=== PATIENT | female | born 1995 | race Two or more races ===

== ENCOUNTER 2025-04-21 10:03 | Emergency (ER) | payer MEDICAID, OTHER ==
[~2025-04-21] VITALS: Ht 160 cm; Wt 91.0 kg
--- NOTE | 2025-04-21 10:29 | ED.PDOC ---
MANAGER DEPARTMENT HPI Comments 30y F who presents to the ED for chief complaint of vaginal bleeding. Pt states she has history of irregular periods and states despite not being on her period for the past few months, she has been having intermittent vaginal bleeding. Pt states she has had days of heavy and days of light vaginal bleeding over the past 2 weeks. Pt does not recall exactly how many pads she has been going through daily but states it varies. Pt has been having associated diffuse lower abdominal cramping pain, intermittent, with no associated exacerbating or relieving factors. Pt states she is currently not . Pt denies use of control at this time. Pt states she has also not seen an OB for her symptoms or ever been evaluated for them. Pt otherwise denies any past medical history. Pt has noted BP of 153/90 but otherwise stable vitals including 02 sat of 99% on room air, rr 16, and heart rate of 87. Pt otherwise denies any other symptoms at this time. Chief Complaint: Vaginal Bleed Time Seen by MD: 10:27 Reviewed Notes: Medications, Allergies Allergies: Uncoded Allergies: SPIDERS (Adverse Reaction, Unknown, 04/21/25) Information Source: Patient Mode of Arrival: Ambulatory Brought in by: self Past Medical History Past Medical History (Other): Obesity, heavy menses [employer]PER[employer]OR History: Other (Heavy, irregular menses) Family History Family History (Other): Gallstones Social History Smoker: Non-Smoker Alcohol: Denies ETOH Use Drugs: Denies Drug Use Lives In: Home Constitutional: denies: chills, diaphoresis, fatigue, fever, malaise, sweats, weakness, others EENTM: denies: blurred vision, double vision, ear bleeding, ear discharge, ear drainage, ear pain, ear ringing, eye pain, eye redness, hearing loss, mouth pain, mouth swelling, nasal discharge, nose bleeding, nose congestion, nose pain, photophobia, tearing, throat pain, throat swelling, voice changes, others Respiratory: denies: cough, hemoptysis, orthopnea, SOB at rest, shortness of breath, SOB with excertion, stridor, wheezing, others Cardiovascular: denies: chest pain, dizzy spells, diaphoresis, Dyspnea on exertion, edema, irregular heart beat, left arm pain, lightheadedness, palpitations, PND, syncope, others Gastrointestinal: denies: abdomen distended, abdominal pain, blood streaked bowels, constipated, diarrhea, dysphagia, difficulty swallowing, hematemesis, melena, nausea, poor appetite, poor fluid intake, rectal bleeding, rectal pain, vomiting, others Genitourinary: reports: abnormal vagina bleeding; denies: burning, dyspareunia, dysuria, flank pain, frequency, hematuria, incontinence, pain, , vagina discharge, urgency, others Neurological: denies: dizziness, fainting, headache, left sided numbness, left sided weakness, numbness, paresthesia, pre-existing deficit, right sided numbness, right sided weakness, seizure, speech problems, tingling, tremors, weakness, others Musculoskeletal: denies: back pain, gout, joint pain, joint swelling, muscle pain, muscle stiffness, neck pain, others Integumetry: denies: bruises, change in color, change in hair/nails, dryness, laceration, lesions, lumps, rash, wounds, others Allergic/Immunocompromised: denies: Difficulty Healing, Frequent Infections, Hives, Itching, others Hematologic/Lymphatic: denies: anemia, blood clots, easy bleeding, easy bruising, swollen glands, others Endocrine: denies: excessive hunger, excessive sweating, excessive thirst, excessive urination, flushing, intolerance to cold, intolerance to heat, unexplained weight gain, unexplained weight loss, others Psychiatric: denies: anxiety, bipolar disorder, depression, hopeless, panic disorder, schizophrenia, sleepless, suicidal, others All Other Systems: Reviewed and Negative Physical Exam General Appearance: No Apparent Distress, Obese HEENT: Other (Pupils and face symmetric. Moist mucous membranes.) Neck: Full Range of Motion, Normal Inspection Respiratory: Lungs Clear, No Accessory Muscle Use, No Respiratory Distress, Normal Breath Sounds Cardiovascular: No Edema, No JVD, Regular Rate/Rhythm Breast Exam: Deferred Gastrointestinal: Non Tender, Soft Genitalia: Deferred Pelvic: Deferred Rectal: Deferred Extremities: Normal inspection, Normal range of motion, Non-tender, No pedal edema Neurologic: Alert (Oriented x4), Normal Affect, Normal Mood, Other (Ambulatory) Cerebellar Function: NOT DONE Reflexes: NOT DONE Skin: Dry, Normal Color, Warm Lymphatic: NOT DONE Was a procedure done? Was a procedure done?: No Differential Diagnosis ([employer]) Vaginal Bleeding: Blood Loss Anemia, Hormonal, Menorrhagia, Menometrorrhagia, Menstrual Bleeding, Myomatous Uterus, UTI, Other ( PCOS, endometriosis) X-Ray, Labs, Meds, VS Vital Signs Date Time Temp Pulse Resp B/P (MAP) Pulse Ox O2 Delivery O2 Flow Rate FiO2 04/21/25 12:57 98.7 75 18 129/81 (97) 99 98.7 04/21/25 12:57 75 18 99 Room Air 04/21/25 10:44 80 18 100 Room Air* 0 21 04/21/25 10:44 99.3 80 18 147/95 (112) 100 99.3 04/21/25 10:23 97.0 87 16 153/90 (111) 99 97.0 Lab Test 04/21/25 10:30 04/21/25 10:22 Range/Units White Blood Count 6.7 4.4-10.8 10^3/uL Red Blood Count 4.42 4.0-5.20 10^6/uL Hemoglobin 11.1 L 12.2-16.2 g/dL Hematocrit 34.4 L 36.0-46.0 % Mean Corpuscular Volume 77.9 L 80.0-100.0 fL Mean Corpuscular Hemoglobin 25.2 L 28.0-32.0 pg Mean Corpuscular Hemoglobin Concent 32.3 32.0-36.0 g/dL Red Cell Distribution Width 15.0 H 11.8-14.3 % Platelet Count 551 H 140-450 10^3/uL Mean Platelet Volume 6.9 6.9-10.8 fL Neutrophils (%) (Auto) 57.1 37.0-80.0 % Lymphocytes (%) (Auto) 35.1 10.0-50.0 % Monocytes (%) (Auto) 4.8 0.0-12.0 % Eosinophils (%) (Auto) 1.8 0.0-7.0 % Basophils (%) (Auto) 1.2 0.0-2.0 % Neutrophils # (Auto) 3.8 1.6-8.6 10 ^3/uL Lymphocytes # (Auto) 2.4 0.4-5.4 10 ^3/uL Monocytes # (Auto) 0.3 0-1.3 10 ^3/uL Eosinophils # (Auto) 0.1 0-0.8 10 ^3/uL Basophils # (Auto) 0.1 0-0.2 10 ^3/uL Nucleated Red Blood Cells 0.1 % Prothrombin Time 10.4 9.3-11.8 sec Prothrombin Time INR 0.98 0.9-1.15 Activated Partial Thromboplast Time 25.1 24.5-34.5 SEC Sodium Level 138 136-145 mmol/L Potassium Level 3.3 L 3.5-5.1 mmol/L Chloride Level 103 98-107 mmol/L Carbon Dioxide Level 24 20-31 mmol/L Anion Gap 11 5-15 Blood Urea Nitrogen 7 L 9-23 mg/dL Creatinine 0.71 0.550-1.02 mg/dL Glomerular Filtration Rate Calc 119 >90 mL/min BUN/Creatinine Ratio 9.9 L 10.0-20.0 Serum Glucose 134 H 74-106 mg/dL Calcium Level 10.1 8.7-10.4 mg/dL Urine Color Light-yellow Yellow Urine Clarity Clear Clear Urine pH 5.5 5.0-9.0 Urine Specific Lamar 1.020 1.001-1.035 Urine Protein Negative Negative Urine Ketones Negative Negative Urine Blood 3+ H Negative /uL Urine Nitrite Negative Negative Urine Bilirubin Negative Negative Urine Urobilinogen Normal Negative mg/dL Urine Leukocyte Esterase Negative Negative /uL Urine RBC 134 0 - 4 /hpf Urine Microscopic WBC 1 0-5 /HPF Urine Squamous Epithelial Cells Few <5 /hpf Urine Bacteria Few H None Seen /hpf Urine Mucus Few None Seen Urine Glucose Normal Normal mg/dL Urine Test Negative Negative Current Medications Medications (Trade) Dose Ordered Sig/Heidi Route Start Time Stop Time Status Last Admin Potassium Bicarbonate (Klor-Con/Ef) 50 meq ONCE ONCE PO 04/21/25 12:45 04/21/25 12:59 DC 04/21/25 13:[address] [address] Ph: [phone] DIAGNOSTIC IMAGING Diagnostic Imaging Report : [id number] Signed PATIENT: HEBER LOTFONT: [id number] UNIT: [id number] : 1995 LOC: ER ROOM / BED: / AGE / SEX: 30 / F ADM STATUS: REG ER SERVICE 1019 ORDERING PHYSICIAN: RASHAAD PARTIDA MD PROCEDURE(s): PELUS - PELVIC REASON: irreg/heavy vag bleed ORDER NUMBER(s): [id number], ACCESSION NUMBER(s): [id number] CLINICAL HISTORY: Abnormal uterine bleeding. COMPARISON:None TECHNIQUE: Transvaginal and transabdominal grayscale sonographic imaging of the uterus and ovaries was performed, assisted by color Doppler technique. Duplex Doppler ultrasound of both ovaries was also performed. Small amount of fluid in the cul-de-sac, likely physiologic fluid. FINDINGS: The uterus measures 8.8 x 5.3 x 5.0 cm. There is homogeneous echogenicity. Endometrial thickness measures 0.2 cm, within normal limits. Right ovary measures 4.2 x 2.1 x 2.2 cm. Arterial and venous blood flow demonstrated. Small follicles in the right ovary. Left ovary measures 3.2 x 2.1 x 2.1 cm. Arterial and venous blood flow demonstrated. Small follicles in the left ovary. IMPRESSION: Unremarkable sonographic appearance of the uterus and ovaries. ATED BY: DOUGLAS PHAN DO DICTATED DATE/TIME: 04/21/25 1245 X-Ray, Labs, Meds, VS Comment 30-year-old female with no significant past medical history other than irregular periods complaining of vaginal bleeding for the past 2 weeks Initial vitals remarkable for BP 153/90 Exam unremarkable Rhythm strip independently interpreted by me: Sinus rhythm, rate 87, no ectopy. Pelvic ultrasound: Unremarkable CBC remarkable for hemoglobin 11.1, hematocrit 34.4, platelets 551, basic meta bolic panel remarkable for potassium 3.3, coag panel normal, UA positive for blood and RBCs Patient treated with the following in the ED: Effervescent potassium 50 mEq p.o. On re-evaluation, exam is unchanged and vitals were stable. Blood pressure is n ormal. Patient appears stable for discharge with close outpatient follow-up with OBGYN. She will be referred to Dr. Kowalski. Rx Provera Time of 1ST Reevaluation: 13:56 Reevaluation 1ST: Unchanged Patient Education/Counseling: Diagnosis, Treatment Family Education/Counseling: No Family Present Departure 1 Departure Time of Disposition: 13:56 Impression: Primary Impression: Vagina bleeding Disposition: 01 HOME / SELF CARE / HOMELESS Condition: Stable Referrals: JOCELINE KOWALSKI DO Additional Instructions: Your blood and urine tests were unremarkable. Your ultrasound was normal. Please see the report below. I have prescribed medication to help slow down or stop your bleeding. Follow-up with an OBGYN in 1-2 days for further evaluation of your irregular menses. Alternatively, follow-up directly with Dr. Kowalski. [place] [address] Ph: [phone] DIAGNOSTIC IMAGING Diagnostic Imaging Report : [id number] Signed PATIENT: HEBER LOFTON ACCT: [id number] UNIT: [id number] : 1995 LOC: ER ROOM / BED: / AGE / SEX: 30 / F ADM STATUS: REG ER SERVICE 1019 ORDERING PHYSICIAN: RASHAAD PARTIDA MD PROCEDURE(s): PELUS - PELVIC REASON: irreg/heavy vag bleed ORDER NUMBER(s): [id number], ACCESSION NUMBER(s): [id number] CLINICAL HISTORY: Abnormal uterine bleeding. COMPARISON:None TECHNIQUE: Transvaginal and transabdominal grayscale sonographic imaging of the uterus and ovaries was performed, assisted by color Doppler technique. Duplex Doppler ultrasound of both ovaries was also performed. Small amount of fluid in the cul-de-sac, likely physiologic fluid. FINDINGS: The uterus measures 8.8 x 5.3 x 5.0 cm. There is homogeneous echogenicity. Endometrial thickness measures 0.2 cm, within normal limits. Right ovary measures 4.2 x 2.1 x 2.2 cm. Arterial and venous blood flow demonstrated. Small follicles in the right ovary. Left ovary measures 3.2 x 2.1 x 2.1 cm. Arterial and venous blood flow demonstrated. Small follicles in the left ovary. IMPRESSION: Unremarkable sonographic appearance of the uterus and ovaries. ATED BY: DOUGLAS PAHN DO DICTATED DATE/TIME: 04/21/25 1245 e-Prescriptions Medroxyprogesterone Acetate (PROVERA) 5 Mg Tab 2 TAB PO DAILY for 10 Days, #20 TAB 11 Refills Prov: RASHAAD PARTIDA MD 04/21/25 Discharged With: Self Critical Care Note Critical Care Time?: No Stability Stability form required: No Heart Score Heart Score: Heart Score Response (Comments) Value History N/A 0 EKG N/A 0 Age N/A 0 Risk Factors N/A 0 Troponin N/A 0 Total 0 I personally scribed for RASHAAD PARTIDA MD ([email or web address]) on 04/21/25 at 10:29. Electronically submitted by Bethanie Ballard ([facility]). I personally scribed for RASHAAD PARTIDA MD ([email or web address]) on 04/21/25 at 10:33. Electronically submitted by Bethanie Ballard ([facility]). RASHAAD PARTIDA MD Apr 21, 2025 10:29
[2025-04-21 10:44] VITALS: PULSE 80; RESP 18; O2SAT 100
[2025-04-21 11:03] LABS: Hematocrit 34.4 % (36.0-46.0); Hemoglobin 11.1 g/dL (12.2-16.2); Mean Corpuscular Hemoglobin 25.2 pg (28.0-32.0); Mean Corpuscular Volume 77.9 fL (80.0-100.0); Nucleated Red Blood Cells % 0.1 %
[2025-04-21 11:08] LABS: Chloride 103 mmol/L (98-107); Sodium 138 mmol/L (136-145)
[2025-04-21 11:09] LABS: Anion Gap 11 (5-15); Calcium 10.1 mg/dL (8.7-10.4); Carbon Dioxide 24 mmol/L (20-31)
[2025-04-21 11:11] LABS: Potassium 3.3 mmol/L (3.5-5.1)
[2025-04-21 11:14] LABS: BUN/Creatinine Ratio 9.9 (10.0-20.0)
[2025-04-21 11:15] LABS: Blood Urea Nitrogen 7 mg/dL (9-23); Glucose 134 mg/dL (74-106); INR 0.98 (0.9-1.15); Partial Thromboplastin Time 25.1 SEC (24.5-34.5); Prothrombin Time 10.4 sec (9.3-11.8)
[2025-04-21 11:56] LABS: Urine Protein, UAD Negative (Negative)
--- NOTE | 2025-04-21 12:47 | DVH ---
CLINICAL HISTORY: Abnormal uterine bleeding. COMPARISON:None TECHNIQUE: Transvaginal and transabdominal grayscale sonographic imaging of the uterus and ovaries wa s performed, assisted by color Doppler technique. Duplex Doppler ultrasound of both ovaries was also performed. Small amount of fluid in the cul-de-sac, likely physiologic fluid. FINDINGS: The uterus measures 8.8 x 5.3 x 5.0 cm. There is homogeneous echogenicity. Endometrial thic kness measures 0.2 cm, within normal limits. Right ovary measures 4.2 x 2.1 x 2.2 cm. Arterial and venous blood flow demonstrated. Small follicles in the right ovary. Left ovary measures 3.2 x 2.1 x 2.1 cm. Arterial and venous blood flow demonstrated. Small follicles in the left ovary. IMPRESSION: Unremarkable sonographic appearance of the uterus and ovaries.
[2025-04-21 12:57] VITALS: BP 129/81; PULSE 75; RESP 18; TEMP 98.7; O2SAT 99
[2025-04-21] MEDS: POTASSIUM EFFERVESENT TAB 25 MEQ PO ONE (13:24)
[2025-04-21] MEDS ORDERED: MEDR5TAB28 PO (14:00)
== END 2025-04-21 14:16 | disposition home or self-care (01) ==
LOC: ER 10:03
DX: N93.9 Abnormal uterine and vaginal bleeding, unspecified (principal); E66.9 Obesity, unspecified
CPT/HCPCS: 36415; 76830; 76856; 80048; 81001; 81025; 85025; 85610; 85730